=== PATIENT | male | born 1990 | race Caucasian/White ===

== ENCOUNTER 2024-03-20 19:31 | Emergency (ER) | payer MEDICAID ==
[~2024-03-20] VITALS: Ht 165.1 cm; Wt 74.0 kg
[2024-03-20 19:58] VITALS: O2SAT 99
[2024-03-20 21:10] LABS: CLARITY URINE CLEAR (CLEAR); COLOR URINE YELLOW (YELLOW); GLUCOSE URINE NEGATIVE (NEGATIVE); KETONES URINE NEGATIVE (NEGATIVE); LEUKOCYTE ESTERASE URINE NEGATIVE (NEGATIVE); NITRITE URINE NEGATIVE (NEGATIVE); OCCULT BLOOD URINE NEGATIVE (NEGATIVE); PH URINE 7.5 (4.5-8.0); PROTEIN URINE NEGATIVE (NEGATIVE); SPECIFIC GRAVITY URINE 1.013 (1.005-1.030)
[2024-03-20 21:18] LABS: CHLORIDE 109 mEq/L (98-107); POTASSIUM 4.1 mEq/L (3.5-5.1); SODIUM 144 mEq/L (136-145)
[2024-03-20 21:19] LABS: *AMPHETAMINES SCREEN URINE NEGATIVE (NEGATIVE); *BARBITURATES SCREEN URINE NEGATIVE (NEGATIVE); *BENZODIAZEPINES SCREEN URINE NEGATIVE (NEGATIVE); *COCAINE SCREEN URINE NEGATIVE (NEGATIVE); CANNABINOID URINE SCREEN NEGATIVE (NEGATIVE); CARBON DIOXIDE 28 mEq/L (21-32); ECSTASY MDMA SCREEN URINE NEGATIVE (NEGATIVE); METHADONE URINE SCREEN Neg (NEGATIVE); OPIATES URINE SCREEN NEGATIVE (NEGATIVE); PHENCYCLIDINE URINE SCREEN NEGATIVE (NEGATIVE)
[2024-03-20 21:20] LABS: BASOPHILS % 0.3 % (0.0-2.0); CALCIUM 8.9 mg/dL (8.7-10.4); EOSINOPHILS % 3.1 % (0.0-5.0); HEMATOCRIT. 36.1 % (42.0-52.0); HEMOGLOBIN. 12.8 g/dL (14.0-18.0); LYMPHOCYTES % 19.6 % (20.0-50.0); MEAN CORPUSCULAR HGB CONC 35.4 g/dL (31.0-37.0); MEAN CORPUSCULAR VOLUME 95.9 fL (80.0-94.0); MEAN PLATELET VOLUME 10.9 fl (7.4-10.4); MONOCYTES % 14.3 % (2.0-8.0); NEUTROPHILS % 62.7 % (40.0-76.0); PLATELET 108 x1000/uL (130-400); RED BLOOD CELL COUNT 3.76 mill/uL (4.7-6.1); WHITE BLOOD COUNT 3.2 x1000/uL (4.5-11.0)
[2024-03-20 21:24] LABS: CREATININE 0.8 mg/dL (0.6-1.3); GLUCOSE 94 mg/dL (70-105); UREA NITROGEN BLOOD 10 mg/dL (9-23)
[2024-03-20 21:26] LABS: ACETAMINOPHEN < 2 ug/mL (10-30); ALANINE AMINOTRANSFERASE 231 IU/L (10-49); ALBUMIN 4.2 g/dL (3.2-4.8); ASPARTATE AMINOTRANSFERASE 151 IU/L (<34); ETHANOL BLOOD < 10 mg/dL (<10)
[2024-03-20 21:27] LABS: BILIRUBIN TOTAL 0.4 mg/dL (0.1-1.0); PROTEIN TOTAL 7.1 g/dL (6.0-8.3)
[2024-03-20] MEDS: HALOPERIDOL LACTATE 5MG/ML VIAL IM ONE (22:45)
[2024-03-20] MEDS: DIPHENHYDRAMINE 50MG/ML VIAL IM STA (22:45)
[2024-03-20] MEDS: LORAZEPAM 2MG/ML INJ IM ONE (22:45)
[2024-03-21 11:19] VITALS: BP 104/65; PULSE 88; RESP 16; TEMP 98
== END 2024-03-21 11:16 | disposition home or self-care (01) ==
LOC: ER 19:31
DX: R45.851 Suicidal ideations (principal); Z20.822 Contact with and (suspected) exposure to COVID-19
CPT/HCPCS: 80053; 80305; 81003; 80307; 80329; 80320; 85025; 36415; 96372; 99285; 87426; 82962; J1200; J1630; J2060; Z7610 ×2; G0480